=== PATIENT | male | born 1960 | race Caucasian/White ===

== ENCOUNTER 2019-02-09 15:16 | Emergency (ER) | payer BC ==
[~2019-02-09] VITALS: Ht 167.6 cm; Wt 89.8 kg
[2019-02-09] MEDS ORDERED: SYNTHROID88 MCG PO (15:23)
[2019-02-09] MEDS ORDERED: LIPITOR10 MG PO (15:23)
[2019-02-09] MEDS ORDERED: ZANTAC 150MG T150 MG PO (15:24)
[2019-02-09] MEDS ORDERED: ASPIR 8181 MG PO (15:24)
[2019-02-09] MEDS ORDERED: KEFLEX500 M1 PO (16:22)
[2019-02-09] MEDS ORDERED: ACETAMINOPHEN-1 EAC1 PO (16:22)
[2019-02-09 16:37] VITALS: BP 166/90
== END 2019-02-09 16:38 | disposition home or self-care (01) ==
LOC: M.ERS 15:16
DX: S60.552A Superficial foreign body of left hand, initial encounter (principal); K21.9 Gastro-esophageal reflux disease without esophagitis; E03.9 Hypothyroidism, unspecified; Z90.49 Acquired absence of other specified parts of digestive tract; W45.8XXA Other foreign body or object entering through skin, initial encounter; Y93.89 Activity, other specified; Y92.89 Other specified places as the place of occurrence of the external cause; Y99.8 Other external cause status